=== PATIENT | male | born 1985 | race Caucasian/White ===

== ENCOUNTER → 2020-09-16 | Emergency (ER) | payer OTHER ==
[~2020-09-16] VITALS: Ht 170.2 cm; Wt 90.7 kg
[~2020-09-16] MED LIST: ACYCLOVIR200 MG/5 M; AZOR 5-20 MG T1 EACH; CIPRO500 MG PO; COZAAR100 MG PO; KETO10TA2 PO; PAROXETINE HCL10 MG PO; ZOVIRAX800 MG
== END | disposition home or self-care (01) ==
LOC: ER 19:05
DX: J32.8 Other chronic sinusitis (principal)

== ENCOUNTER 2021-02-01 09:00 | Outpatient (CLI) | payer OTHER | END 2021-02-01 09:15 | disposition home or self-care (01) | LOC: PPH VACUNA 09:00 | PROVIDERS: ATTEND Emergency Medicine Pediatric Emergency Medicine | DX: Z23 Encounter for immunization (principal) ==